=== PATIENT | male | born 1950 | race Asian ===

== ENCOUNTER → 2022-05-02 | Outpatient (CLI) | payer MEDICARE ==
[~2022-05-02] VITALS: Ht 160 cm; Wt 82.5 kg
[~2022-05-02] MED LIST: ESCI-8 PO; FLUT16SP NASAL; LORA10TA7 PO; POTA10TA16 PO; QUET25TA PO; SIMV-259 PO
[2022-05-02 09:27] VITALS: BP 136/74
== END | disposition home or self-care (01) ==
LOC: SRCNTR 09:12
PROVIDERS: ATTEND Internal Medicine
DX: Z09 Encounter for follow-up examination after completed treatment for conditions other than malignant neoplasm (principal); K21.9 Gastro-esophageal reflux disease without esophagitis; J45.909 Unspecified asthma, uncomplicated; R09.82 Postnasal drip; R05.9 Cough, unspecified
CPT/HCPCS: G0463; Z7500

== ENCOUNTER → 2022-05-14 | Outpatient (CLI) | payer MEDICARE, OTHER | END | disposition home or self-care (01) | LOC: RADMN 09:27 | PROVIDERS: ATTEND Internal Medicine | DX: I35.1 Nonrheumatic aortic (valve) insufficiency (principal); I25.10 Atherosclerotic heart disease of native coronary artery without angina pectoris; I50.22 Chronic systolic (congestive) heart failure; Z77.090 Contact with and (suspected) exposure to asbestos | CPT/HCPCS: 71250; 93306 ==

== ENCOUNTER → 2022-07-04 | Outpatient (CLI) | payer MEDICARE, OTHER ==
[~2022-07-04] VITALS: Ht 160 cm; Wt 80.2 kg
[~2022-07-04] MED LIST changes: +MULT-1260 PO
[2022-07-04 09:54] VITALS: BP 121/77
== END | disposition home or self-care (01) ==
LOC: SRCNTR 09:40
PROVIDERS: ATTEND Internal Medicine
DX: Z09 Encounter for follow-up examination after completed treatment for conditions other than malignant neoplasm (principal); K21.9 Gastro-esophageal reflux disease without esophagitis; J45.909 Unspecified asthma, uncomplicated; R05.9 Cough, unspecified; R09.82 Postnasal drip
CPT/HCPCS: G0463